=== PATIENT | female | born 1965 ===

== ENCOUNTER 2020-11-04 19:12 | Emergency (ER) | payer OTHER, SELFPAY ==
--- NOTE | ~2020-11-04 | US_ITS ---
EXAMINATION: ULTRASOUND PELVIS, COMPLETE CLINICAL INFORMATION: Unusually heavy vaginal bleeding. COMPARISON: None TECHNIQUE: Transabdominal and transvaginal imaging of the pelvic viscera performed utilizing grayscale and color Doppler technique FINDINGS: Uterus normal in size and configuration measuring 11.7 x 6.3 x 6.9 cm. There is a 4.4 x 3.3 x 3.9 cm fibroid within the right posterior uterine corpus, intramural. Endometrial signature measures 1.1 cm, and is heterogeneous in echotexture. Ovaries normal in size and appearance measuring 4.1 x 2.7 x 3.6 cm on the right and 2.8 x 1.4 x 1.8 cm on the left. No free fluid. US/US pelvic and transvaginal IMPRESSION: * There is a single 4.4 cm fibroid within the right posterior uterus. * Heterogeneous, but nonthickened endometrial signature, as might be expected in the setting of active bleeding.
[2020-11-04 19:13] VITALS: BP 159/99; PULSE 89; RESP 18; TEMP 36.6; O2SAT 98; BMI 31.3
--- NOTE | 2020-11-04 23:01 | PC.NURSE ---
IV established, labs obtained. Pt reports constant heavy vaginal bleeding since with large blood clots. Pt states that she had been without a period from May-July. Pt states she has been unable to see OBGYN due to a lapse in health insurance. Pt denies abdominal pain, weakness/dizziness.
[2020-11-04 23:03] VITALS: BP 131/53; PULSE 70; RESP 16; O2SAT 99
[2020-11-04 23:09] LABS: MANUAL DIFF FLAG NO
[2020-11-04 23:11] LABS: Basophils Percent Auto 0.5 % (0-2); Eosinophils Absolute Auto 0.1 X10*3/uL (0.0-0.4); Eosinophils Percent Auto 1.6 % (0-4); Hematocrit 33.9 % (37-47); Hemoglobin 11.3 g/dl (12.0-16.0); Imm Gran Abs Auto 0.02 X10*3/uL (0.00-0.03); Imm Gran Pct Auto 0.3 % (0.0-0.4); Lymphocytes Absolute Auto 1.6 X10*3/uL (1.2-4.9); Lymphocytes Percent Auto 25.3 % (20-40); Mean Corpuscular HGB Conc 33.3 g/dl (31.0-35.0); Mean Corpuscular Volume 89.9 fL (80-98); Mean Platelet Volume 10.2 fL (9.4-12.3); Monocytes Absolute Auto 0.5 X10*3/uL (0.1-1.2); Monocytes Percent Auto 8.3 % (2-11); Platelet Count 262 X10*3/uL (160-400); Red Blood Count 3.77 X10*6/uL (4.20-5.50); Red Cell Distribution Width 13.6 % (11.0-16.0); White Blood Count 6.3 X10*3/uL (4.8-10.8)
[2020-11-04 23:22] LABS: Glucose Urine UA 100 MG/DL (NEG); Specific Gravity - Urine >= 1.030 (1.005-1.025); UACC Culture Trigger YES; Urine Blood 3+ (NEG); Urine Ketones NEG (NEG); Urine Protein 3+ MG/DL (NEG-TRACE)
[2020-11-04 23:23] LABS: Appearance Urine TURBID; Color Urine RED
[2020-11-04 23:25] LABS: Leukocyte Esterase Urine NEG (NEG)
[2020-11-04 23:26] LABS: Nitrite Urine POS (NEG)
--- NOTE | 2020-11-04 23:32 | ED_ITS ---
HPI - Female Genitourinary General Chief complaint: Vaginal Bleeding Stated complaint: vag bleeding Time Seen by Provider: 11/04/20 23:31 Source: patient Mode of arrival: ambulatory History of Present Illness HPI Narrative: 55-year-old female without significant past medical history who presents with complaints of heavier than normal menstrual bleeding after not having a period for 3 months. She denies any associated blood thinners, fevers, chills, urinary pain/burning/frequency and reports approximately 6-7 pads within 24 hours. She denies any associated dizziness, headache, palpitations, shortness of breath. Related Data Allergies Allergy/AdvReac Type Severity Reaction Status Date / Time No Known Allergies Allergy Unverified 12/28/19 16:18 [No Known Allergies*] Review of Systems Review of Systems: Pertinent positives and negatives as stated in HPI 10 point review of systems is otherwise negative. PMFSH Past Medical History Source: nursing notes reviewed Medical History No acute medical problems Surgical History H/O: hysterectomy Social History Social History Advance Directives: No Advance Directives Information Provided: No Patient : No (Unknown) Physical Exam Vital Signs: Vital Signs: Last Vital Signs Temp 97.8 F 11/04/20 19:13 Pulse 70 11/04/20 23:03 Resp 16 11/04/20 23:03 BP 131/53 L 11/04/20 23:03 Pulse Ox 99 11/04/20 23:03 Body Mass Index 31.3 VITAL SIGNS: Reviewed. GENERAL: Well developed, well nourished, in no acute distress. HEAD: Normocephalic/atraumatic EYES: PERRLA, EOMI without pain pallor EARS: Ext canals without abnormality NOSE: Nares patent bilateral OROPHARYNX: no oral lesions noted, posterior pharynx clear NECK: Supple, no adenopathy LUNGS: Normal breath sounds. No adventitious sounds or accessory muscle use. SpO2<99> CARDIOVASCULAR: Regular rate and rhythm without noted murmurs ABDOMEN: Soft, non-tender, non-distended with bowel sounds. SKIN: Inspection of the skin reveals no rashes,pallor NEUROLOGIC: Alert and oriented x 4. Strength and sensation to light touch were grossly intact x 4. Course Course Course Narrative: 55-year-old female with history and clinical presentation consistent with perimenopause and doubt AUB. Review of all investigations without acute changes from baseline and findings are consistent with perimenopause as well as small fibroid likely contributing to heavy menstrual bleeding. Patient is otherwise asymptomatic and does not require further intervention at this time patient received precautions regarding symptoms and instructions for when she you should return to the emergency room. MDM - Female Genitourinary Lab Data Result diagrams: 11/04/20 22:55 11/04/20 22:55 Labs: Lab Results 11/04/20 11/04/20 11/04/20 Range/Units 22:55 22:55 22:55 WBC 6.3 (4.8-10.8) X10*3/uL RBC 3.77 L (4.20-5.50) X10*6/uL Hgb 11.3 L (12.0-16.0) g/dl Hct 33.9 L (37-47) % MCV 89.9 (80-98) fL MCH 30.0 (27.0-33.0) pg MCHC 33.3 (31.0-35.0) g/dl RDW 13.6 (11.0-16.0) % Plt Count 262 (160-400) X10*3/uL MPV 10.2 (9.4-12.3) fL Immature Gran % (Auto) 0.3 (0.0-0.4) % Neut % (Auto) 64.0 (45-73) % Lymph % (Auto) 25.3 (20-40) % [place] % (Auto) 8.3 (2-11) % Eos % (Auto) 1.6 (0-4) % Baso % (Auto) 0.5 (0-2) % Lymph # (Auto) 1.6 (1.2-4.9) X10*3/uL Kimball # (Auto) 0.5 (0.1-1.2) X10*3/uL Eos # (Auto) 0.1 (0.0-0.4) X10*3/uL Baso # (Auto) 0.0 (0.0-0.2) X10*3/uL Abs Immat Gran (auto) 0.02 (0.00-0.03) X10*3/uL Absolute Neuts (auto) 4.0 (2.0-8.3) X10*3/uL Absolute Nucleated RBC 0.000 (0.0-0.012) X10*3/uL Nucleated RBC % (auto) 0.0 (0.0-0.2) /100WBC Sodium 141 (135-145) mmol/L Potassium 3.6 (3.3-5.1) mmol/L Chloride 107 (96-108) mmol/L Carbon Dioxide 25 (22-29) mmol/L Anion Gap 13 (12-20) BUN 9 (9-16) mg/dL Creatinine 0.70 (0.5-1.4) mg/dL Estim Creat Clear Calc 75.9 Estimated GFR > 60 Random Glucose 96 (60-115) mg/dL Calcium 8.7 (8.4-10.2) mg/dL Total Bilirubin < 0.2 (0.0-1.0) mg/dL AST 16 (5-31) U/L ALT 10 (0-31) U/L Alkaline Phosphatase 93 (39-117) U/L Total Protein 7.6 (6.5-8.0) g/dL Albumin 4.4 (3.5-5.0) g/dL Urine Color RED Urine Appearance TURBID Urine pH 6.0 (5.0-8.0) Ur Specific [place] >= 1.030 H (1.005-1.025) Urine Protein 3+ H (NEG-TRACE) MG/DL Urine Glucose (UA) 100 H (NEG) MG/DL Urine Ketones NEG (NEG) MG/DL Urine Blood 3+ H (NEG) Urine Nitrite POS H (NEG) Ur Leukocyte Esterase NEG (NEG) Urine RBC TNTC H (0) /HPF Urine WBC 1-4 (0-4) /HPF Ur Squamous Epith Cells NONE /LPF Urine Bacteria NONE /LPF Urine Mucus 4+ /LPF Urine Test (NEGATIVE) 11/04/20 Range/Units 22:55 WBC (4.8-10.8) X10*3/uL RBC (4.20-5.50) X10*6/uL Hgb (12.0-16.0) g/dl Hct (37-47) % MCV (80-98) fL MCH (27.0-33.0) pg MCHC (31.0-35.0) g/dl RDW (11.0-16.0) % Plt Count (160-400) X10*3/uL MPV (9.4-12.3) fL Immature Gran % (Auto) (0.0-0.4) % Neut % (Auto) (45-73) % Lymph % (Auto) (20-40) % Kimball % (Auto) (2-11) % Eos % (Auto) (0-4) % Baso % (Auto) (0-2) % Lymph # (Auto) (1.2-4.9) X10*3/uL [place] # (Auto) (0.1-1.2) X10*3/uL Eos # (Auto) (0.0-0.4) X10*3/uL Baso # (Auto) (0.0-0.2) X10*3/uL Abs Immat Gran (auto) (0.00-0.03) X10*3/uL Absolute Neuts (auto) (2.0-8.3) X10*3/uL Absolute Nucleated RBC (0.0-0.012) X10*3/uL Nucleated RBC % (auto) (0.0-0.2) /100WBC Sodium (135-145) mmol/L Potassium (3.3-5.1) mmol/L Chloride (96-108) mmol/L Carbon Dioxide (22-29) mmol/L Anion Gap (12-20) BUN (9-16) mg/dL Creatinine (0.5-1.4) mg/dL Estim Creat Clear Calc Estimated GFR Random Glucose (60-115) mg/dL Calcium (8.4-10.2) mg/dL Total Bilirubin (0.0-1.0) mg/dL AST (5-31) U/L ALT (0-31) U/L Alkaline Phosphatase (39-117) U/L Total Protein (6.5-8.0) g/dL Albumin (3.5-5.0) g/dL Urine Color Urine Appearance Urine pH (5.0-8.0) Ur Specific [place] (1.005-1.025) Urine Protein (NEG-TRACE) MG/DL Urine Glucose (UA) (NEG) MG/DL Urine Ketones (NEG) MG/DL Urine Blood (NEG) Urine Nitrite (NEG) Ur Leukocyte Esterase (NEG) Urine RBC (0) /HPF Urine WBC (0-4) /HPF Ur Squamous Epith Cells /LPF Urine Bacteria /LPF Urine Mucus /LPF Urine Test NEGATIVE (NEGATIVE) Discharge Plan Discharge Clinical Impression: Perimenopause, Uterine fibroid, Menstruation Patient Disposition: Home, Self-Care Instructions: Dysmenorrhea (ED) Additional Instructions: 1. Please follow-up with your primary care provider and/or tack driller within the next 1-2 days for re-evaluation and further outpatient management. 2. Please do not hesitate to return to the emergency room should you began to feel dizzy, experience fatigue/heart palpitations, or experience more than 8 saturated pads within 24 hours. Return to the ER for acute worsening of your symptoms. Referrals: Physician,Unknown [Primary Care Provider] - 2 days
[2020-11-04 23:33] LABS: Mucus Urine 4+ /LPF; RBC Urine TNTC /HPF (0)
[2020-11-04 23:44] LABS: Alanine Aminotransferase 10 U/L (0-31); Albumin Level 4.4 g/dL (3.5-5.0); Alkaline Phosphatase 93 U/L (39-117); Anion Gap 13 (12-20); Aspartate Amino Transferase 16 U/L (5-31); Bilirubin Total < 0.2 mg/dL (0.0-1.0); Blood Urea Nitrogen 9 mg/dL (9-16); Calcium 8.7 mg/dL (8.4-10.2); Carbon Dioxide 25 mmol/L (22-29); Chloride 107 mmol/L (96-108); Creatinine Clr Calc Pharmacy 75.9; Estimated Glomerular Filt Rate > 60; Glucose Random 96 mg/dL (60-115); Potassium 3.6 mmol/L (3.3-5.1); Sodium 141 mmol/L (135-145); Total Protein 7.6 g/dL (6.5-8.0)
[2020-11-04 23:47] LABS: UPreg QC Valid YES; Urine Pregnancy NEGATIVE (NEGATIVE)
--- NOTE | 2020-11-05 01:41 | PC.NURSE ---
MD at bedside discussing results and plan to DC home.
[2020-11-05 01:49] VITALS: BP 121/72; PULSE 70; RESP 16
== END 2020-11-05 01:53 | disposition home or self-care (01) ==
PROVIDERS: Emergency Provider Student in an Organized Health Care Education/Training Program
DX: N92.4 Excessive bleeding in the premenopausal period (principal); D25.1 Intramural leiomyoma of uterus
CPT/HCPCS: 36415; 76830; 76856; 80053; 81001; 81003; 81025; 85025; 99284

== ENCOUNTER 2022-11-08 06:43 | Emergency (ER) | payer OTHER, SELFPAY ==
--- NOTE | ~2022-11-08 | XR_ITS ---
EXAMINATION: 1. RADIOGRAPHS CHEST 2. RADIOGRAPHS LEFT SHOULDER 3. RADIOGRAPHS LEFT HUMERUS CLINICAL INFORMATION: Cough. Left humerus pain. COMPARISON: Chest x-ray March 31, 2016 TECHNIQUE: 2 views of the chest, 3 views of the left shoulder and 2 views of the left humerus were obtained. FINDINGS: Chest: Cardiac silhouette is normal in size. The lungs are well aerated. There is no lobar consolidation. No pleural effusion or pneumothorax. Left shoulder/left humerus: No fracture of the left humerus. Left humeral head demonstrates good articulation with the glenoid fossa. There are minimal degenerative changes of the glenohumeral and acromioclavicular joints. Visualized left-sided ribs and lung parenchyma are unremarkable. Limited imaging of the left elbow is grossly unremarkable. XR/XR humerus LT IMPRESSION: 1. No acute pulmonary pathology. 2. Minimal degenerative changes of the left shoulder without fracture or dislocation.
--- NOTE | ~2022-11-08 | XR_ITS ---
EXAMINATION: 1. RADIOGRAPHS CHEST 2. RADIOGRAPHS LEFT SHOULDER 3. RADIOGRAPHS LEFT HUMERUS CLINICAL INFORMATION: Cough. Left humerus pain. COMPARISON: Chest x-ray March 31, 2016 TECHNIQUE: 2 views of the chest, 3 views of the left shoulder and 2 views of the left humerus were obtained. FINDINGS: Chest: Cardiac silhouette is normal in size. The lungs are well aerated. There is no lobar consolidation. No pleural effusion or pneumothorax. Left shoulder/left humerus: No fracture of the left humerus. Left humeral head demonstrates good articulation with the glenoid fossa. There are minimal degenerative changes of the glenohumeral and acromioclavicular joints. Visualized left-sided ribs and lung parenchyma are unremarkable. Limited imaging of the left elbow is grossly unremarkable. XR/XR shoulder LT min 2V IMPRESSION: 1. No acute pulmonary pathology. 2. Minimal degenerative changes of the left shoulder without fracture or dislocation.
--- NOTE | ~2022-11-08 | XR_ITS ---
EXAMINATION: 1. RADIOGRAPHS CHEST 2. RADIOGRAPHS LEFT SHOULDER 3. RADIOGRAPHS LEFT HUMERUS CLINICAL INFORMATION: Cough. Left humerus pain. COMPARISON: Chest x-ray March 31, 2016 TECHNIQUE: 2 views of the chest, 3 views of the left shoulder and 2 views of the left humerus were obtained. FINDINGS: Chest: Cardiac silhouette is normal in size. The lungs are well aerated. There is no lobar consolidation. No pleural effusion or pneumothorax. Left shoulder/left humerus: No fracture of the left humerus. Left humeral head demonstrates good articulation with the glenoid fossa. There are minimal degenerative changes of the glenohumeral and acromioclavicular joints. Visualized left-sided ribs and lung parenchyma are unremarkable. Limited imaging of the left elbow is grossly unremarkable. XR/XR chest 2V IMPRESSION: 1. No acute pulmonary pathology. 2. Minimal degenerative changes of the left shoulder without fracture or dislocation.
[2022-11-08 07:11] VITALS: BP 151/85; PULSE 82; RESP 16; TEMP 36.7; O2SAT 97; BMI 32.8
--- NOTE | 2022-11-08 07:22 | ED.EXTPRO ---
HPI - Extremity Problem General Chief complaint: Extremity Problem Stated complaint: left arm pain Time Seen by Provider: 11/08/22 07:12 Source: patient Mode of arrival: ambulatory History of Present Illness HPI Narrative: 57-year-old female without significant past medical history, specifically no history of diabetes or thyroid dysfunction presents with 1 week of worsening left shoulder/upper arm pain without numbness or tingling distally and she denies any traumatic injury to the upper extremity and denies any lifting/pushing/pulling. She denies any fevers but states she has been having chills. Related Data Allergies Allergy/AdvReac Type Severity Reaction Status Date / Time No Known Allergies Allergy Verified 11/08/22 07:17 [No Known Allergies*] Review of Systems Review of Systems: Pertinent positives and negatives as stated in [facility] Past Medical History Source: nursing notes reviewed Medical History No acute medical problems Surgical History H/O: hysterectomy Social History Social History Alcohol intake: never Smoked in Last 30 Days: No Use of substances other than those prescribed or required for medical reasons: No Advance Directives: No Advance Directives Information Provided: Yes Patient : No Physical Exam Vital Signs: Vital Signs: Last Vital Signs Temp 98.5 F 11/08/22 08:16 Pulse 74 11/08/22 08:16 Resp 18 11/08/22 08:16 BP 145/70 H 11/08/22 08:16 Pulse Ox 96 11/08/22 08:16 O2 Del Method Room Air 11/08/22 08:16 BMI result Body Mass Index 32.8 VITAL SIGNS: Reviewed. GENERAL: Well developed, well nourished, in no acute distress. HEAD: Normocephalic/atraumatic EYES: PERRLA, EOMI EARS: Ext canals without abnormality NOSE: Nares patent bilateral OROPHARYNX: no oral lesions noted, posterior pharynx clear NECK: Supple, no adenopathy LUNGS: Normal breath sounds. No adventitious sounds or accessory muscle use. SpO2<97> CARDIOVASCULAR: Regular rate and rhythm without noted murmurs ABDOMEN: Soft, non-tender, non-distended with bowel sounds. MUSCULOSKELETAL: No tenderness, deformities, or effusions noted on gross inspection. EXTREMITIES: No cyanosis, clubbing or edema; LEFT UPPER EXTREMITY: No obvious deformity, no erythema/induration/ecchymosis, patient with apparent proximal tenderness to palpation at the humerus, no AC tenderness to palpation, elbow has full range of motion without tenderness to palpation, neurovascular is intact distally with warm hand and good capillary refill SKIN: Inspection of the skin reveals no rashes NEUROLOGIC: Alert and oriented x 4. Strength and sensation to light touch were grossly intact x 4. Medications Administered Discontinued Medications Generic Name Dose Route Start Last Admin Trade Name Freq PRN Reason Stop Dose Admin Acetaminophen 975 mg 11/08/22 07:22 11/08/22 07:34 Acetaminophen 325 Mg Tablet PO 11/08/22 07:23 975 mg ONCE ONE Administration Ibuprofen 400 mg 11/08/22 07:22 11/08/22 07:34 Ibuprofen 400 Mg Tablet PO 11/08/22 07:23 400 mg ONCE ONE Administration Medical Decision Making Medical Decision Making MDM Narrative: 57-year-old female with history and clinical presentation, DDX: Musculoskeletal, less likely frozen shoulder, much less likely fracture/dislocation of either the shoulder or humerus, no clinical suspicion for cellulitis in no significant suspicion for DVT. - ddimer - CXR/shoulder/humerus - analgesics I reviewed chest x-ray which is negative for pneumonia/pneumothorax and otherwise my interpretation is in agreement with radiology's impression. I reviewed the shoulder x-ray which is negative for fracture/dislocation, humerus x-ray also negative for fracture or dislocation in both cases my interpretation is in agreement with radiology's impression. D-dimer is negative and patient is otherwise discharged home with presumptive treatment for arthritis. Differential Diagnosis Differential Diagnoses: The differential diagnosis associated with the presentation includes Please see the discussion above Admission/Observation Consideration of admission/observation: Escalation of care including admission/observation considered Please see the discussion above Lab Data [facility] Lab Attestation statement: I reviewed the patient's lab results. Please see the discussion above Labs: Lab Results 11/08/22 Range/Units 07:53 D-Dimer High Sensitivty < 150 NG/ML Radiology Impression Radiologist Impression: No pneumothorax/pneumonia/fracture/dislocation. Otherwise my interpretation is in agreement with radiology's impression. External Record Review External record reviewed: Outpatient record and Prior outpatient labs Discharge Plan Discharge Clinical Impression: Musculoskeletal pain Patient Disposition: Home, Self-Care Instructions: Musculoskeletal Pain (ED) Additional Instructions: 1. Tylenol 1000 mg, por v?a oral, cada 6 horas seg?n sea necesario para controlar el dolor. No exceda los 4000 mg dentro de las 24 horas. 2. Ibuprofeno 400 mg, por v?a oral con leche o alimentos, cada 6 horas seg?n sea necesario para controlar el dolor. 3. Seguimiento con mercado proveedor de atenci?n primaria los pr?ximos 1-2 d?as. Regrese a la shad de emergencias si los s?ntomas empeoran. 1. Tylenol 1000 mg, orally, every 6 hours as needed for pain control. Do not exceed 4000 mg within 24 hours. 2. Ibuprofen 400 mg, orally with milk or food, every 6 hours as needed for pain control. 3. Follow-up with your primary care provider the next 1-2 days. Return to the ER for any worsening symptoms. Print Language: [place]i
[2022-11-08] MEDS: Acetaminophen 325 MG TABLET 975 MG PO (07:34)
[2022-11-08] MEDS: Ibuprofen 400 MG TABLET PO (07:34)
[2022-11-08 08:14] LABS: D Dimer High Sensitivity < 150 NG/ML
[2022-11-08 08:16] VITALS: BP 145/70; PULSE 74; RESP 18; TEMP 36.9; O2SAT 96
== END 2022-11-08 09:06 | disposition home or self-care (01) ==
PROVIDERS: Emergency Provider Student in an Organized Health Care Education/Training Program
DX: M25.512 Pain in left shoulder (principal); R07.89 Other chest pain; M79.10 Myalgia, unspecified site; Z79.899 Other long term (current) drug therapy
CPT/HCPCS: 36415; 71046; 73030; 73060; 85379; 99284